=== PATIENT | female | born 1995 | race Caucasian/White ===

== ENCOUNTER 2018-07-16 10:58 | Outpatient (CLI) | payer OTHER | END 2018-07-16 23:01 | disposition home or self-care (01) | LOC: CT 10:58 → EDBD 10:58 → CT 23:01 | DX: R10.31 Right lower quadrant pain (principal) | CPT/HCPCS: Q9963 ==

== ENCOUNTER 2018-07-18 13:40 | Observation (INO) | payer OTHER ==
[~2018-07-18] VITALS: Ht 162.6 cm; Wt 51.9 kg
[2018-07-18 14:56] LABS: PLATELET COUNT 247 K/uL (152-353)
[2018-07-18 15:13] LABS: POTASSIUM 4.4 mmol/L (3.6-5.2)
[2018-07-18 15:14] VITALS: BP 116/63; TEMP 98.3; Ht 162.6 cm; Wt 51.9 kg
[2018-07-18 20:02] VITALS: BP 109/62; TEMP 98.7
[2018-07-19] VITALS: BP 95/57; TEMP 98.5
[2018-07-19 04:07] VITALS: BP 104/59; TEMP 98.1
[2018-07-19 05:24] LABS: PLATELET COUNT 226 K/uL (152-353)
[2018-07-19 05:36] LABS: POTASSIUM 3.8 mmol/L (3.6-5.2)
[2018-07-19 08:00] VITALS: BP 112/54; TEMP 98.3
[2018-07-19 12:00] VITALS: BP 105/61; TEMP 98.1
== END 2018-07-19 15:10 | disposition home or self-care (01) ==
LOC: MED/SURG 13:40
PROVIDERS: ADMIT Family Medicine
DX: N15.1 Renal and perinephric abscess (principal); A49.8 Other bacterial infections of unspecified site; R10.9 Unspecified abdominal pain
CPT/HCPCS: 36415; 80053; 82550; 83735; 84100; 85027; 87040; 99220; G0378; G0379; J2185

== ENCOUNTER 2018-08-28 10:16 | Outpatient (CLI) | payer OTHER | END 2018-08-28 20:05 | disposition home or self-care (01) | LOC: EDBD 10:16 → RAD 10:16 | DX: R10.31 Right lower quadrant pain (principal) ==

== ENCOUNTER 2021-01-04 10:00 | Outpatient (CLI) | payer BC | END 2021-01-04 23:59 | disposition home or self-care (01) | LOC: US 10:00 | PROVIDERS: ATTEND Nurse Practitioner Family | DX: R10.31 Right lower quadrant pain (principal) ==

== ENCOUNTER 2021-07-27 14:49 | Outpatient (CLI) | payer BC | END 2021-07-27 19:04 | disposition home or self-care (01) | LOC: US 14:49 | PROVIDERS: ATTEND Nurse Practitioner Family | DX: R10.31 Right lower quadrant pain (principal) ==

== ENCOUNTER 2022-03-02 21:32 | Emergency (ER) | payer BC ==
[~2022-03-02] VITALS: Ht 162.6 cm; Wt 51.7 kg
[2022-03-02 23:26] LABS: PLATELET COUNT 243 K/uL (152-353)
[2022-03-02 23:29] LABS: POTASSIUM 2.8 mmol/L (3.6-5.2)
[2022-03-03 00:56] VITALS: TEMP 98.1
[2022-03-03 01:00] VITALS: BP 107/61
== END 2022-03-03 00:56 | disposition home or self-care (01) ==
LOC: ED 21:32
PROVIDERS: Family Medicine
DX: N13.2 Hydronephrosis with renal and ureteral calculous obstruction (principal); R10.32 Left lower quadrant pain
CPT/HCPCS: 80053; 81000; 81025; 82150; 83605; 83690; 85027; 96360; 96365; 96375; 99284; J0696; J1885; J2175; J2550

== ENCOUNTER 2022-12-08 09:08 | Outpatient (CLI) | payer BC | END 2022-12-08 18:57 | disposition home or self-care (01) | LOC: US 09:08 | PROVIDERS: ATTEND Nurse Practitioner Family | DX: R10.31 Right lower quadrant pain (principal) ==